=== PATIENT | male | born 1975 | race Hispanic/Latino ===

== ENCOUNTER 2019-06-10 12:31 | Emergency (ER) | payer OTHER, SELFPAY ==
[2019-06-11 11:54] LABS: SARS-CoV-2 MS2 Positive; SARS-CoV-2 N Gene Positive; SARS-CoV-2 S Gene Positive; SARS-CoV-2 orf1ab Positive
== END 2019-06-10 13:34 | disposition home or self-care (01) ==
LOC: ERS 12:31
DX: U07.1 COVID-19 (principal); R05 Cough; F17.210 Nicotine dependence, cigarettes, uncomplicated
CPT/HCPCS: 87635; 87804; 99283; U0003

== ENCOUNTER 2019-06-19 20:36 | Inpatient (IN) | payer OTHER, SELFPAY ==
[2019-06-19] MEDS ORDERED: Acetaminophen 500 MG TAB ONE (21:03)
[2019-06-19 21:13] LABS: #Monocytes 0.4 thou/uL (0.11-0.59); #Neutrophils 5.5 thou/uL (1.40-6.50); %Basophils 0.2 % (0.0-1.0); %Eosinophils 0.2 % (0.0-10.0); %Lymphocytes 14.4 % (21.0-51.0); %Monocytes 5.6 % (0.0-10.0); %Neutrophils 79.5 % (42.0-75.0); Hemoglobin 14.5 g/dL (14.0-18.0); Mean Corpuscular HGB CONC 32.6 g/dL (32.0-36.0); Mean Corpuscular Hemoglobin 31.2 pg (27.0-31.0); Mean Corpuscular Volume 95.6 fL (78.0-98.0); Mean Platelet Volume 6.6 fL (7.4-10.4); Platelet Count 274 thou/uL (130-400); RBC Distribution Width 12.4 % (11.5-14.5); Red Blood Cell (RBC) Count 4.66 mill/uL (4.70-6.10)
[2019-06-19 21:30] LABS: Base Excess-Venous 1.4 mmol/L (-2.0 to 3.0); Bicarbonate (HCO3v) 25.3 mmol/L (22.0-28.0); CO2 Tension (PvCO2) 36.8 mmHg (40.0-50.0); Calcium, Ionized 1.03 mmol/L (See Comments:); Chloride 98 mmol/L (98-107); Hemoglobin - Calc 14.4 g/dL (14.0-18.0); Potassium 3.6 mmol/L (3.5-5.1); Sodium 136 mmol/L (138-145); T. Carbon Dioxide 26.4 mmol/L (22.0-28.0)
[2019-06-19 21:30] LABS: ALT (SGPT) 68 U/L (8-55); AST (SGOT) 57 U/L (5-34); Albumin 3.8 g/dL (3.5-5.0); Alkaline Phosphatase 126 U/L (40-110); Anion Gap 14 mmol/L (10-20); BUN (Urea Nitrogen) 9 mg/dL (8.9-20.6); Bilirubin, Total 0.8 mg/dL (0.2-1.2); Calc. Creatinine Clearance 0 mL/min (70-130); Calcium 8.4 mg/dL (7.8-10.44); Carbon Dioxide 25 mmol/L (22-29); Chloride 99 mmol/L (98-107); Estimated GFR-MDRD 86; Globulin 3.5 g/dL (2.4-3.5); Glucose 114 mg/dL (70-105); Potassium 3.6 mmol/L (3.5-5.1); Protein, Total 7.3 g/dL (6.0-8.3); Sodium 134 mmol/L (136-145)
[2019-06-19] MEDS ORDERED: Hydroxychloroquine Sulfate 200 MG TAB PO SCH (21:45)
[2019-06-19] MEDS ORDERED: cefTRIAXone\\ROCEPHIN 2 GM VIAL ONE (21:45)
[2019-06-19] MEDS ORDERED: cefTRIAXone\\ROCEPHIN 2 GM in Sodium Chloride 0.9% 100 ML IVPB SCH (22:00)
[2019-06-19] MEDS ORDERED: Azithromycin 500 MG in Sodium Chloride 0.9% 250 ML 250 ML IVPB SCH (22:00)
[2019-06-19] MEDS ORDERED: Azithromycin 500 MG VIAL ONE (22:19)
[2019-06-19] MEDS ORDERED: Calcium Carbonate 500 MG ChewTAB PO PRN (23:46)
[2019-06-20 00:56] VITALS: BMI 31.4
[2019-06-20] MEDS ORDERED: Albuterol 200 PUFF (6.7GM INHALER) INH PRN (01:07)
[2019-06-20 01:22] LABS: Troponin I 0.026 ng/mL (< 0.028)
--- NOTE | 2019-06-20 01:54 | HP ---
The patient was seen and examined on June 19, 2019. CHIEF COMPLAINT: Shortness of breath along with fever. HISTORY OF PRESENT ILLNESS: The patient is a 44-year-old male with recently diagnosed COVID-19, presented to the emergency room with above complaints. Over the last 2 weeks, the patient has gradual worsening shortness of breath along with intermittent fever. He was evaluated in the emergency room 11 days ago and was positive for COVID. He self quarantined himself. He takes vyaa-zum-[id number] medication on an as-needed basis. His symptoms got worse over the past few days. He also has cough that is productive of thick yellowish phlegm. He gets short of breath on [id number] exertion. He also has intermittent headache along with chills. For this reason, EMS was called. 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 In the emergency room, his initial vital signs showed temperature 102.7 with respirations of 24, pulse rate of 120, with a blood pressure of 132/74 with O2 saturation 88% on room air. He is currently on 3 L nasal cannula. PAST MEDICAL HISTORY: Recent diagnosis of COVID infection. PAST SURGICAL HISTORY: Reviewed with the patient and none. ALLERGIES: NO KNOWN DRUG ALLERGIES. CURRENT HOME MEDICATION: Tylenol as needed. SOCIAL HISTORY: The patient drinks socially. He currently lives at home with his family. He smokes up to half pack a day. FAMILY HISTORY: Negative for premature coronary artery disease. REVIEW OF SYSTEMS: All other review of systems are reviewed and were found negative. PHYSICAL EXAMINATION: VITAL SIGNS: As discussed above. GENERAL: A 44-year-old male, ill-appearing, in no distress at rest. HEENT: Head, atraumatic and normocephalic. Sclerae anicteric. No oral lesion. NECK: Supple. No JVD. No carotid bruit. No stridor. LUNGS: Showed bilateral rhonchi with bibasilar rales. No significant wheezing. The patient was in mild respiratory distress in the emergency room that has significantly improved. HEART: S1-S2 present, regular. No rubs or gallops. ABDOMEN: Soft. Bowel sounds present. No rebound or guarding. No costovertebral angle tenderness. EXTREMITIES: No edema or calf tenderness. NEUROLOGIC: Grossly nonfocal. Moves all 4 extremities. PSYCHIATRY: Alert, awake, and oriented x3. SKIN: Warm and dry. LYMPH NODES: No palpable lymph nodes in the neck. PERIPHERAL VASCULAR: Radial pulses palpable bilaterally. MUSCULOSKELETAL: No joint swelling or tenderness. LABORATORY FINDINGS: CBC showed WBC 7.0 with hemoglobin 14.5, lymphocytes 14.4, neutrophils 79.5. VBGs showed pH 7.44 with pCO2 of 36.8, PO2 of 49. Chemistry showed sodium 134, potassium 3.6, chloride 99, bicarb 25, BUN of 9, and creatinine 0.95. Total bilirubin 0.8, AST 57, ALT 68, alkaline phosphatase 126. COVID-19 PCR was negative on the 09 of June. Influenza screen was negative on 09 June. Chest x-ray by my review showed bibasilar infiltrate. EKG by my review showed sinus tachycardia. IMPRESSION: 1. Acute hypoxic respiratory failure. 2. Recent diagnosis of COVID-19. 3. Ongoing tobacco abuse. 4. Obesity with a BMI of 31.5. 5. Abnormal liver function tests probably secondary to COVID. 6. Hyponatremia. PLAN: The patient will be monitored in the telemetry unit. His tachycardia has significantly improved with O2 supplementation. We will continue azithromycin. We will add cefepime. We will add nebulizer treatments, Plaquenil. We will monitor QT interval on a daily basis. We will check CRP, procalcitonin, and D-dimer in a.m. We will also add BNP. We will hold IV fluids for now. Monitor labs on a daily basis. Job ID: [id number]
[2019-06-20] MEDS ORDERED: Albuterol 200 PUFF (6.7GM INHALER) INH SCH (02:30)
[2019-06-20] MEDS: Albuterol 200 PUFF (6.7GM INHALER) INH SCH ×6 (03:20→21:42)
[2019-06-20 04:54] LABS: #Lymphocytes 1.1 thou/uL (1.20-3.40); #Monocytes 0.5 thou/uL (0.11-0.59); #Neutrophils 4.4 thou/uL (1.40-6.50); %Basophils 0.6 % (0.0-1.0); %Eosinophils 0.2 % (0.0-10.0); %Lymphocytes 17.7 % (21.0-51.0); %Monocytes 7.7 % (0.0-10.0); %Neutrophils 73.8 % (42.0-75.0); Hemoglobin 13.3 g/dL (14.0-18.0); Mean Corpuscular HGB CONC 32.6 g/dL (32.0-36.0); Mean Corpuscular Hemoglobin 31.6 pg (27.0-31.0); Platelet Count 268 thou/uL (130-400); RBC Distribution Width 12.5 % (11.5-14.5); Red Blood Cell (RBC) Count 4.22 mill/uL (4.70-6.10)
[2019-06-20] MEDS: Acetaminophen 325 MG TAB PO PRN (05:12)
[2019-06-20 05:17] LABS: ALT (SGPT) 62 U/L (8-55); AST (SGOT) 52 U/L (5-34); Albumin 3.4 g/dL (3.5-5.0); Alkaline Phosphatase 119 U/L (40-110); Anion Gap 12 mmol/L (10-20); BUN (Urea Nitrogen) 8 mg/dL (8.9-20.6); Bilirubin, Total 0.5 mg/dL (0.2-1.2); CRP (Inflammatory) 11.41 mg/dL (= or < 0.5); Calc. Creatinine Clearance 122 mL/min (70-130); Calcium 7.6 mg/dL (7.8-10.44); Carbon Dioxide 27 mmol/L (22-29); Chloride 102 mmol/L (98-107); Estimated GFR-MDRD 88; Globulin 2.6 g/dL (2.4-3.5); Glucose 104 mg/dL (70-105); Potassium 4.2 mmol/L (3.5-5.1); Sodium 137 mmol/L (136-145)
[2019-06-20 05:26] LABS: Prothrombin Time 12.7 sec (12.0-14.7)
[2019-06-20 05:27] LABS: PTT 34.9 SEC (22.9-36.1)
[2019-06-20 05:28] LABS: D-Dimer Test 0.81 *mcg/mL (0.27-0.43)
[2019-06-20] MEDS: Ascorbic Acid 500 mg Chewable Tablet PO SCH (08:56)
[2019-06-20] MEDS: Zinc Sulfate 220 MG CAP PO SCH (08:56)
[2019-06-20] MEDS: Saccharomyces boulardii 250 MG CAP PO SCH (08:57)
[2019-06-20] MEDS: Enoxaparin Sodium 40 MG/0.4 ML SYRINGE SC SCH (08:57)
[2019-06-20] MEDS: Folic Acid/Vit B Comp W-C PO SCH (08:57)
[2019-06-20] MEDS: Famotidine 20 MG TAB PO SCH ×2 (08:57→20:14)
[2019-06-20] MEDS: Hydroxychloroquine Sulfate 200 MG TAB PO SCH ×3 (08:58→20:15)
[2019-06-20] MEDS ORDERED: Cefepime 1 GM in Sodium Chloride 0.9% 100 ML IVPB SCH ×2 (09:00→22:00)
--- NOTE | 2019-06-20 09:00 | RAD ---
CHEST 1 VIEW: INDICATION: History of worsening shortness of breath and fever with confirmed positive findings of COVID-19. COMPARISON: None. FINDINGS: Patchy peripheral airspace opacity are evident bilaterally. Heart size is accentuated by a depth of inspiration. No pleural effusion is evident. No pneumothorax is demonstrated. IMPRESSION: 1. Low lung volumes. 2. Patchy peripheral interstitial and airspace opacities. Findings are consistent with patient's kn own history of COVID-19 infection. POS: BH
--- NOTE | 2019-06-20 11:07 | PDOC.HOSPP ---
- Subjective Encounter Date: 06/20/19 Encounter Time: 11:05 Subjective: Mr. Lane was seen today in follow-up of COVID -19 positive pneumonia. He says he feels ok. When asked if he is short of breath, he says " a little". He denies chest pain, he has noted some diarrhea. - Objective Vital Signs & Weight: Vital Signs (12 hours) Temp Pulse Resp BP Pulse Ox 06/20/19 03:46 99.4 F 92 28 H 106/65 96 06/20/19 02:10 95 06/20/19 00:05 99.1 F 97 26 H 109/67 95 Weight Weight 189 lb I&O: 06/19/19 06/20/19 06/21/19 06:59 06:59 06:59 Intake Total 200 Output Total 550 Balance -350 Result Diagrams: 06/20/19 04:35 06/20/19 04:35 Hospitalist ROS - Medication Medications: Active Medications Generic Name Dose Route Start Last Admin Trade Name Freq PRN Reason Stop Dose Admin Acetaminophen 650 mg 06/19/19 23:46 06/20/19 05:12 Tylenol PO 650 mg Q4H PRN Administration Headache/Fever/Mild Pain (1-3) Albuterol Sulfate 2 puff 06/20/19 02:30 06/20/19 05:55 Proventil Hfa INH 2 puff [id number] LUISA Administration Ascorbic Acid 1,000 mg 06/20/19 09:00 06/20/19 08:56 Vitamin C PO 1,000 mg DAILY LUISA Administration Enoxaparin Sodium 40 mg 06/20/19 09:00 06/20/19 08:57 Lovenox SC 40 mg 0900 LUISA Administration Famotidine 20 mg 06/20/19 09:00 06/20/19 08:57 Pepcid PO 20 mg BID LUISA Administration Hydroxychloroquine Sulfate 200 mg 06/20/19 09:00 06/20/19 08:58 Plaquenil PO 200 mg TID LUISA Administration Cefepime HCl 1 gm/ Sodium 100 mls @ 200 mls/hr 06/20/19 09:00 06/20/19 08:57 Chloride IVPB 100 mls Q12HR LUISA Administration Saccharomyces Boulardii 250 mg 06/20/19 09:00 06/20/19 08:57 Florastor PO 250 mg DAILY LUISA Administration Vitamin B Complex/Vit C/Folic Acid 1 tab 06/20/19 09:00 06/20/19 08:57 Nephro-Daniel Tablet PO 1 tab DAILY LUISA Administration Zinc Sulfate 220 mg 06/20/19 09:00 06/20/19 08:56 Zinc Sulfate PO 220 mg DAILY LUISA Administration - Exam Eye: PERRL, anicteric sclera Heart: RRR, no murmur, no gallops, no rubs, normal peripheral pulses Respiratory: no wheezes, normal chest expansion, rales (rales at the right side , through out, and left at the bases, but with better breath sounds than the right, + mild Tachypnea) Gastrointestinal: soft, non-tender, non-distended, normal bowel sounds, no palpable masses Extremities: no cyanosis, no clubbing (Pulses are palpable bilaterally, no lesions, no mottling, no erythema), no edema Skin: no lesions, no rashes Hosp A/P (1) Pneumonia due to COVID-19 virus Code(s): U07.1 - COVID-19; J12.89 - OTHER VIRAL PNEUMONIA Status: Acute (2) Acute respiratory failure with hypoxemia Code(s): J96.01 - ACUTE RESPIRATORY FAILURE WITH HYPOXIA Status: Acute - Plan * COVID positive Pneumonia with acue respiratory failure- continue Supportive care * Supplemental Oxygen * Albuterol inhalers * Continue Empiric antibiotics, for potential bacterial super-infection * This disease has a known unpredictable course- will therefore have a low index of suspicious to move to higher level of care if necessary. This has been communicated to the staff.
[2019-06-20] MEDS: Azithromycin 500 MG in Sodium Chloride 0.9% 250 ML 250 ML IVPB SCH (20:14)
[2019-06-20] MEDS: Melatonin 3 MG TAB PO SCH (20:14)
[2019-06-21] MEDS: Albuterol 200 PUFF (6.7GM INHALER) INH SCH ×6 (03:52→23:07)
[2019-06-21] MEDS: Acetaminophen 325 MG TAB PO PRN ×3 (04:07→23:06)
[2019-06-21] MEDS ORDERED: Sodium Chloride 0.9% 500 ML IVPB SCH (05:15)
[2019-06-21 05:40] LABS: #Eosinphils 0.1 thou/uL (0.0-0.7); #Lymphocytes 0.9 thou/uL (1.20-3.40); #Monocytes 0.5 thou/uL (0.11-0.59); %Basophils 0.4 % (0.0-1.0); %Eosinophils 0.9 % (0.0-10.0); %Lymphocytes 16.5 % (21.0-51.0); %Monocytes 8.8 % (0.0-10.0); %Neutrophils 73.4 % (42.0-75.0); Hemoglobin 13.1 g/dL (14.0-18.0); Mean Corpuscular HGB CONC 32.3 g/dL (32.0-36.0); Mean Corpuscular Hemoglobin 31.2 pg (27.0-31.0); Mean Corpuscular Volume 96.4 fL (78.0-98.0); Mean Platelet Volume 6.9 fL (7.4-10.4); Platelet Count 317 thou/uL (130-400); RBC Distribution Width 12.4 % (11.5-14.5); Red Blood Cell (RBC) Count 4.21 mill/uL (4.70-6.10); White Blood Cell (WBC) Count 5.5 thou/uL (4.8-10.8)
[2019-06-21 06:00] LABS: ALT (SGPT) 59 U/L (8-55); AST (SGOT) 56 U/L (5-34); Albumin 3.3 g/dL (3.5-5.0); Alkaline Phosphatase 109 U/L (40-110); Anion Gap 13 mmol/L (10-20); BUN (Urea Nitrogen) 11 mg/dL (8.9-20.6); Bilirubin, Total 0.5 mg/dL (0.2-1.2); Calc. Creatinine Clearance 145 mL/min (70-130); Calcium 8.2 mg/dL (7.8-10.44); Carbon Dioxide 25 mmol/L (22-29); Chloride 102 mmol/L (98-107); Estimated GFR-MDRD Greater than 90; Globulin 3.3 g/dL (2.4-3.5); Glucose 98 mg/dL (70-105); Potassium 3.8 mmol/L (3.5-5.1); Protein, Total 6.6 g/dL (6.0-8.3); Sodium 136 mmol/L (136-145)
[2019-06-21] MEDS ORDERED: Sodium Chloride 0.9% 1,000 ML IV SCH (06:15)
--- NOTE | 2019-06-21 07:59 | RAD ---
SINGLE VIEW OF THE CHEST: Comparison: 06-19-2019 History: Tachypenia. Positive Covid-19 with worsening shortness of breath and fever. FINDINGS: Single view of the chest shows a normal sized cardiomediastinal silhouette. Multifocal peripheral opa cities are seen in the lungs. There is obscurity of the right costophrenic angle which could represen t a right lower lobe infiltrate or a small right pleural effusion. IMPRESSION: Stable exam. POS: RAYNEA
[2019-06-21] MEDS: Famotidine 20 MG TAB PO SCH ×2 (08:25→19:32)
[2019-06-21] MEDS: Ascorbic Acid 500 mg Chewable Tablet PO SCH (08:25)
[2019-06-21] MEDS: Enoxaparin Sodium 40 MG/0.4 ML SYRINGE SC SCH (08:25)
[2019-06-21] MEDS: Zinc Sulfate 220 MG CAP PO SCH (08:26)
[2019-06-21] MEDS: Saccharomyces boulardii 250 MG CAP PO SCH (08:26)
[2019-06-21] MEDS: Folic Acid/Vit B Comp W-C PO SCH (08:26)
--- NOTE | 2019-06-21 11:03 | PDOC.HOSPP ---
- Subjective Encounter Date: 06/21/19 Encounter Time: 11:01 Subjective: Mr. Lane was seen today in follow-up of COVID-19 Pneumonia. He notes some dyspnea on exertion. He has had some diarrhea, but none since last night. - Objective Vital Signs & Weight: Vital Signs (12 hours) Temp Pulse Resp BP Pulse Ox 06/21/19 08:00 98.6 F 89 30 H 112/67 94 L 06/21/19 07:48 93 L 06/21/19 05:15 99.1 F 84 28 H 88/54 L 100 06/21/19 04:21 100 F H 86 30 H 97/59 L 95 06/21/19 00:30 99.6 F 95 32 H 102/61 96 Weight Weight 189 lb I&O: 06/20/19 06/21/19 06/22/19 06:59 06:59 06:59 Intake Total 200 950 350 Output Total 550 300 Balance -350 950 50 Result Diagrams: 06/21/19 04:55 06/21/19 04:55 Hospitalist ROS - Medication Medications: Active Medications Generic Name Dose Route Start Last Admin Trade Name Freq PRN Reason Stop Dose Admin Acetaminophen 650 mg 06/19/19 23:46 06/21/19 04:07 Tylenol PO 650 mg Q4H PRN Administration Headache/Fever/Mild Pain (1-3) Albuterol Sulfate 2 puff 06/20/19 01:07 06/20/19 20:55 Proventil Hfa INH 2 puff Q2H PRN Administration SOB/WHEEZE Albuterol Sulfate 2 puff 06/20/19 02:30 06/21/19 10:29 Proventil Hfa INH 2 puff [id number] LUISA Administration Ascorbic Acid 1,000 mg 06/20/19 09:00 06/21/19 08:25 Vitamin C PO 1,000 mg DAILY LUISA Administration Enoxaparin Sodium 40 mg 06/20/19 09:00 06/21/19 08:25 Lovenox SC 40 mg 0900 LUISA Administration Famotidine 20 mg 06/20/19 09:00 06/21/19 08:25 Pepcid PO 20 mg BID LUISA Administration Azithromycin 500 mg/ Sodium 250 mls @ 250 mls/hr 06/20/19 21:00 06/20/19 20: 14 Chloride IVPB 250 mls QPM LUISA Administration Melatonin 3 mg 06/20/19 21:00 06/20/19 20:14 Melatonin PO 3 mg HS LUISA Administration Saccharomyces Boulardii 250 mg 06/20/19 09:00 06/21/19 08:26 Florastor PO 250 mg DAILY LUISA Administration Vitamin B Complex/Vit C/Folic Acid 1 tab 06/20/19 09:00 06/21/19 08:26 Nephro-Daniel Tablet PO 1 tab DAILY LUISA Administration Zinc Sulfate 220 mg 06/20/19 09:00 06/21/19 08:26 Zinc Sulfate PO 220 mg DAILY LUISA Administration - Exam Eye: PERRL ENT: normocephalic atraumatic, no oropharyngeal lesions Heart: RRR, no murmur, no gallops, no rubs Respiratory: rales (rales at both bases. right much greater than left, no wheezing or rhonchi) Gastrointestinal: soft, non-tender, non-distended, normal bowel sounds Extremities: no cyanosis, no clubbing (good distal pulses), no edema Skin: normal turgor, no lesions Hosp A/P (1) Pneumonia due to COVID-19 virus Code(s): U07.1 - COVID-19; J12.89 - OTHER VIRAL PNEUMONIA Status: Acute (2) Acute respiratory failure with hypoxemia Code(s): J96.01 - ACUTE RESPIRATORY FAILURE WITH HYPOXIA Status: Acute - Plan * COVID positive Pneumonia with acute respiratory failure- continue Supportive care * His procalcitonin was low- will discontinue Cefepime, but continue Azithromycin * Will discontinue Hydroxychloroquine * Supplemental Oxygen * Albuterol inhalers * This is approximately day 13 of his illness. Will monitor until at least 14- 15 days in the hospital
[2019-06-21] MEDS: Azithromycin 500 MG in Sodium Chloride 0.9% 250 ML 250 ML IVPB SCH (19:32)
[2019-06-21] MEDS: Melatonin 3 MG TAB PO SCH (19:32)
[2019-06-22] MEDS: Albuterol 200 PUFF (6.7GM INHALER) INH SCH ×4 (03:23→23:33)
[2019-06-22] MEDS: Ascorbic Acid 500 mg Chewable Tablet PO SCH (08:31)
[2019-06-22] MEDS: Zinc Sulfate 220 MG CAP PO SCH (08:31)
[2019-06-22] MEDS: Folic Acid/Vit B Comp W-C PO SCH (08:31)
[2019-06-22] MEDS: Enoxaparin Sodium 40 MG/0.4 ML SYRINGE SC SCH (08:31)
[2019-06-22] MEDS: Saccharomyces boulardii 250 MG CAP PO SCH (08:31)
[2019-06-22] MEDS: Famotidine 20 MG TAB PO SCH ×2 (08:31→20:44)
--- NOTE | 2019-06-22 11:35 | PDOC.HOSPP ---
- Subjective Encounter Date: 06/22/19 Encounter Time: 11:33 Subjective: Mr. Lane was seen today in follow-up of COVID positive Pneumonia with respiratory failure. He says he feels fine. No complaints. He is breathing better, and appetite is improving. - Objective Vital Signs & Weight: Vital Signs (12 hours) Temp Pulse Resp BP Pulse Ox 06/22/19 08:00 99.8 F H 95 18 108/66 91 L 06/22/19 03:32 98.4 F 84 22 H 103/64 100 Weight Weight 183 lb 9.6 oz I&O: 06/21/19 06/22/19 06/23/19 06:59 06:59 06:59 Intake Total 950 1080 Output Total 1600 Balance 950 -520 Result Diagrams: 06/21/19 04:55 06/21/19 04:55 Hospitalist ROS - Medication Medications: Active Medications Generic Name Dose Route Start Last Admin Trade Name Freq PRN Reason Stop Dose Admin Acetaminophen 650 mg 06/19/19 23:46 06/21/19 23:06 Tylenol PO 650 mg Q4H PRN Administration Headache/Fever/Mild Pain (1-3) Albuterol Sulfate 2 puff 06/20/19 01:07 06/20/19 20:55 Proventil Hfa INH 2 puff Q2H PRN Administration SOB/WHEEZE Albuterol Sulfate 2 puff 06/20/19 02:30 06/22/19 06:28 Proventil Hfa INH 2 puff [id number] LUISA Administration Ascorbic Acid 1,000 mg 06/20/19 09:00 06/22/19 08:31 Vitamin C PO 1,000 mg DAILY LUISA Administration Enoxaparin Sodium 40 mg 06/20/19 09:00 06/22/19 08:31 Lovenox SC 40 mg 0900 LUISA Administration Famotidine 20 mg 06/20/19 09:00 06/22/19 08:31 Pepcid PO 20 mg BID LUISA Administration Azithromycin 500 mg/ Sodium 250 mls @ 250 mls/hr 06/20/19 21:00 06/21/19 19: 32 Chloride IVPB 250 mls QPM LUISA Administration Melatonin 3 mg 06/20/19 21:00 06/21/19 19:32 Melatonin PO 3 mg HS LUISA Administration Saccharomyces Boulardii 250 mg 06/20/19 09:00 06/22/19 08:31 Florastor PO 250 mg DAILY LUISA Administration Sodium Chloride 10 ml 06/19/19 23:46 06/21/19 19:33 Flush - Normal Saline IVF 10 ml PRN PRN Administration Saline Flush Vitamin B Complex/Vit C/Folic Acid 1 tab 06/20/19 09:00 06/22/19 08:31 Nephro-Daniel Tablet PO 1 tab DAILY LUISA Administration Zinc Sulfate 220 mg 06/20/19 09:00 06/22/19 08:31 Zinc Sulfate PO 220 mg DAILY LUISA Administration - Exam Eye: PERRL Heart: RRR, no murmur, no gallops, no rubs, normal peripheral pulses Respiratory: CTAB (+ rales bilaterally), no ronchi Gastrointestinal: soft, non-tender, non-distended, normal bowel sounds, no palpable masses, no hepatomegaly Extremities: no cyanosis, no edema Skin: normal turgor Skin - other findings: no rash no lesions Hosp A/P (1) Pneumonia due to COVID-19 virus Code(s): U07.1 - COVID-19; J12.89 - OTHER VIRAL PNEUMONIA Status: Acute (2) Acute respiratory failure with hypoxemia Code(s): J96.01 - ACUTE RESPIRATORY FAILURE WITH HYPOXIA Status: Acute - Plan * COVID positive Pneumonia with acute respiratory failure- continue Supportive care * Will check inflammatory markers- He is at day 14( according to the patient) and will monitor his markers and see the trend. If they begin to trend down over the course of the next few days, thenn he can possibly be discharged home over the weekend * Continue Supplemental Oxygen and wean as tolerated * Albuterol inhalers
[2019-06-22 12:34] LABS: Platelet Count 348 thou/uL (130-400)
[2019-06-22 12:51] LABS: Fibrinogen 716 mg/dL (253-463)
[2019-06-22 12:53] LABS: D-Dimer Test 1.18 *mcg/mL (0.27-0.43); INR-International Normal Ratio 0.9; PTT 31.5 SEC (22.9-36.1); Prothrombin Time 12.1 sec (12.0-14.7)
[2019-06-22 13:12] LABS: FSP-Qualitative Normal (Normal)
[2019-06-22] MEDS: Acetaminophen 325 MG TAB PO PRN ×2 (15:59→20:44)
[2019-06-22] MEDS: Azithromycin 500 MG in Sodium Chloride 0.9% 250 ML 250 ML IVPB SCH (20:44)
[2019-06-22] MEDS: Melatonin 3 MG TAB PO SCH (20:45)
[2019-06-23] MEDS: Albuterol 200 PUFF (6.7GM INHALER) INH SCH ×6 (01:50→23:41)
[2019-06-23] MEDS: Saccharomyces boulardii 250 MG CAP PO SCH (08:31)
[2019-06-23] MEDS: Famotidine 20 MG TAB PO SCH ×2 (08:31→21:17)
[2019-06-23] MEDS: Ascorbic Acid 500 mg Chewable Tablet PO SCH (08:31)
[2019-06-23] MEDS: Folic Acid/Vit B Comp W-C PO SCH (08:31)
[2019-06-23] MEDS: Enoxaparin Sodium 40 MG/0.4 ML SYRINGE SC SCH (08:31)
[2019-06-23] MEDS: Zinc Sulfate 220 MG CAP PO SCH (08:31)
--- NOTE | 2019-06-23 13:30 | PDOC.HOSPP ---
- Subjective Encounter Date: 06/23/19 Encounter Time: 13:29 Subjective: Mr. Lane was seen today in follow-up of COVID-19 pneumonia with respiratory failure. He says he feels fine. His oxygen saturations dropped to 86-88% when he was taken off oxygen. - Objective Vital Signs & Weight: Vital Signs (12 hours) Temp Pulse Resp BP Pulse Ox 06/23/19 12:19 98.9 F 104 H 22 H 109/74 92 L 06/23/19 08:30 98.1 F 101 H 26 H 101/68 94 L 06/23/19 08:00 89 L 06/23/19 06:58 94 L 06/23/19 06:20 94 L 06/23/19 06:15 99.5 F 95 24 H 108/68 99 06/23/19 01:50 98.6 F 85 24 H 103/64 96 Weight Weight 179 lb 14.4 oz I&O: 06/22/19 06/23/19 06/24/19 06:59 06:59 06:59 Intake Total 1080 3740 600 Output Total 1600 3650 300 Balance -520 90 300 Result Diagrams: 06/22/19 12:18 06/21/19 04:55 Hospitalist ROS - Medication Medications: Active Medications Generic Name Dose Route Start Last Admin Trade Name Freq PRN Reason Stop Dose Admin Acetaminophen 650 mg 06/19/19 23:46 06/22/19 20:44 Tylenol PO 650 mg Q4H PRN Administration Headache/Fever/Mild Pain (1-3) Albuterol Sulfate 2 puff 06/20/19 01:07 06/20/19 20:55 Proventil Hfa INH 2 puff Q2H PRN Administration SOB/WHEEZE Albuterol Sulfate 2 puff 06/20/19 02:30 06/23/19 12:01 Proventil Hfa INH 2 puff [id number] LUISA Administration Ascorbic Acid 1,000 mg 06/20/19 09:00 06/23/19 08:31 Vitamin C PO 1,000 mg DAILY LUISA Administration Enoxaparin Sodium 40 mg 06/20/19 09:00 06/23/19 08:31 Lovenox SC 40 mg 0900 LUISA Administration Famotidine 20 mg 06/20/19 09:00 06/23/19 08:31 Pepcid PO 20 mg BID LUISA Administration Azithromycin 500 mg/ Sodium 250 mls @ 250 mls/hr 06/20/19 21:00 06/22/19 20: 44 Chloride IVPB 250 mls QPM LUISA Administration Melatonin 3 mg 06/20/19 21:00 06/22/19 20:45 Melatonin PO 3 mg HS LUISA Administration Saccharomyces Boulardii 250 mg 06/20/19 09:00 06/23/19 08:31 Florastor PO 250 mg DAILY LUISA Administration Sodium Chloride 10 ml 06/19/19 23:46 06/23/19 08:32 Flush - Normal Saline IVF 10 ml PRN PRN Administration Saline Flush Vitamin B Complex/Vit C/Folic Acid 1 tab 06/20/19 09:00 06/23/19 08:31 Nephro-Daniel Tablet PO 1 tab DAILY LUISA Administration Zinc Sulfate 220 mg 06/20/19 09:00 06/23/19 08:31 Zinc Sulfate PO 220 mg DAILY LUISA Administration - Exam Eye: PERRL Heart: RRR, no murmur, no gallops, no rubs, normal peripheral pulses Respiratory: CTAB, rales Gastrointestinal: soft, non-tender, non-distended, normal bowel sounds, no palpable masses, no hepatomegaly Extremities: no cyanosis, no edema Hosp A/P (1) Pneumonia due to COVID-19 virus Code(s): U07.1 - COVID-19; J12.89 - OTHER VIRAL PNEUMONIA Status: Acute (2) Acute respiratory failure with hypoxemia Code(s): J96.01 - ACUTE RESPIRATORY FAILURE WITH HYPOXIA Status: Acute - Plan * COVID positive Pneumonia with acute respiratory failure- continue Supportive care * Will check inflammatory markers- these are decreasing - will re-check tomorrow * Hopefully he can be weaned entirely off oxygen by tomorrow. Anticipate discharge home tomorrow if stable. He is uninsured, and if he requires oxygen, then he will have to self pay. * Azithromycin and albuterol inhaler will be sent to his pharmacy today, so that he can receive medication assistance * Continue Supplemental Oxygen and wean as tolerated
[2019-06-23] MEDS: Azithromycin 500 MG in Sodium Chloride 0.9% 250 ML 250 ML IVPB SCH (21:17)
[2019-06-23] MEDS: Melatonin 3 MG TAB PO SCH (21:18)
[2019-06-24] MEDS: Albuterol 200 PUFF (6.7GM INHALER) INH SCH ×3 (03:30→11:38)
[2019-06-24] MEDS: Saccharomyces boulardii 250 MG CAP PO SCH (08:55)
[2019-06-24] MEDS: Famotidine 20 MG TAB PO SCH (08:55)
[2019-06-24] MEDS: Folic Acid/Vit B Comp W-C PO SCH (08:55)
[2019-06-24] MEDS: Ascorbic Acid 500 mg Chewable Tablet PO SCH (08:55)
[2019-06-24] MEDS: Zinc Sulfate 220 MG CAP PO SCH (08:55)
[2019-06-24] MEDS: Enoxaparin Sodium 40 MG/0.4 ML SYRINGE SC SCH (08:55)
[2019-06-24 11:48] VITALS: BP 97/62; TEMP 97.4
--- NOTE | 2019-06-24 15:19 | EKG ---
Test Reason : SOB Blood Pressure : / mmHG Vent. Rate : 100 BPM Atrial Rate : 100 BPM P-R Int : 144 ms QRS Dur : 090 ms QT Int : 346 ms P-R-T Axes : 015 -09 012 degrees QTc Int : 446 ms Normal sinus rhythm Normal ECG Confirmed by MALLORY MATTHEWS DO ([id number]), graphics editor MELISSA SHEA ([id number]) on 06/24/2019 3:19:10 PM Referred By: Confirmed By:MALLORY MATTHEWS DO
--- NOTE | 2019-06-25 01:07 | DIS ---
DATE OF ADMISSION: 06/19/2019 DATE OF DISCHARGE: 06/24/2019 DISCHARGE DIAGNOSES: 1. Pneumonia due to COVID-19 virus. 2. Acute respiratory failure with hypoxemia. DISCHARGE MEDICATIONS: 1. Albuterol inhaler q.6 hours. 2. Vitamin C 1000 mg daily. 3. Zithromax 250 mg daily for 4 more days. 4. Folic acid one tablet daily. 5. Zinc sulfate 220 mg daily. PHYSICAL EXAMINATION: On the day of discharge, the patient is doing well. He is comfortable. He is saturating in the room air in the upper 90s. He is not in any respiratory distress. HOSPITAL COURSE: This is a 44-year-old male admitted with shortness of breath and fever. He was tested positive on June 09 and came to the emergency room on with short of breath and fever. He also had intermittent headache. He is English-speaking only. He was admitted for further care. After supportive measures including Zithromax, nebulizer treatments, Plaquenil, vitamin C, and zinc, he remained stable. He had one episode of hypoxia the day prior to discharge that has resolved. He is ambulating and he does not need any home oxygen. He is almost 14 days after being tested positive for COVID. He is clinically stable enough to be discharged. DISCHARGE INSTRUCTIONS: Activity as tolerated. Healthy heart diet. Follow up with primary care physician in one week. TIME SPENT: Discharge time took over 30 minutes. Job ID: [id number] [id number]
== END 2019-06-24 14:50 | disposition home or self-care (01) | DRG 177 ==
LOC: ERS 20:36 → 2SW 22:02
PROVIDERS: ADMIT Internal Medicine; ATTEND Internal Medicine
PROC: 8E0ZXY6 Isolation (ICD-10-PCS; principal; 2019-06-19)
DX: U07.1 COVID-19 (principal); J12.89 Other viral pneumonia; J96.01 Acute respiratory failure with hypoxia; E87.1 Hypo-osmolality and hyponatremia; F17.210 Nicotine dependence, cigarettes, uncomplicated; E66.9 Obesity, unspecified; Z68.31 Body mass index [BMI] 31.0-31.9, adult
CPT/HCPCS: 36415; 71045; 80053; 82330; 82728; 82803; 83605; 83630; 83880; 84145; 84484; 85025; 85049; 85300; 85362; 85379; 85384; 85610; 85730; 86140; 87045; 87046; 87081; 87324; 87328; 87329; 87427; 87449; 93005; 96361; 96365; 96366; 96367; J0456; J0692; J0696; J1650; J3490; J7030; J7050

== ENCOUNTER 2020-07-16 16:06 | Emergency (ER) | payer SELFPAY ==
[2020-07-16 16:47] LABS: #Basophils 0.1 thou/uL (0.0-0.2); #Lymphocytes 1.1 thou/uL (1.20-3.40); #Neutrophils 4.3 thou/uL (1.40-6.50); %Eosinophils 0.8 % (0.0-10.0); %Lymphocytes 16.7 % (21.0-51.0); %Monocytes 14.8 % (0.0-10.0); %Neutrophils 66.7 % (42.0-75.0); Hemoglobin 15.2 g/dL (14.0-18.0); Mean Corpuscular HGB CONC 34.7 g/dL (32.0-36.0); Mean Corpuscular Hemoglobin 33.6 pg (27.0-31.0); Mean Corpuscular Volume 96.9 fL (78.0-98.0); Platelet Count 215 thou/uL (130-400); RBC Distribution Width 12.5 % (11.5-14.5); Red Blood Cell (RBC) Count 4.53 mill/uL (4.70-6.10); White Blood Cell (WBC) Count 6.5 thou/uL (4.8-10.8)
[2020-07-16] MEDS ORDERED: Aspirin Chewable 81 MG TAB ONE (16:58)
[2020-07-16 17:22] LABS: ALT (SGPT) 96 U/L (8-55); AST (SGOT) 78 U/L (5-34); Albumin 4.2 g/dL (3.5-5.0); Alkaline Phosphatase 96 U/L (40-110); Anion Gap 18 mmol/L (10-20); BUN (Urea Nitrogen) 13 mg/dL (8.9-20.6); Bilirubin, Total 0.4 mg/dL (0.2-1.2); CK (CPK) 275 U/L (30-200); Calc. Creatinine Clearance 0 mL/min (70-130); Calcium 9.2 mg/dL (7.8-10.44); Carbon Dioxide 20 mmol/L (22-29); Chloride 101 mmol/L (98-107); Globulin 3.3 g/dL (2.4-3.5); Glucose 145 mg/dL (70-105); Potassium 3.8 mmol/L (3.5-5.1); Protein, Total 7.5 g/dL (6.0-8.3); Sodium 135 mmol/L (136-145)
[2020-07-16 18:42] LABS: Bilirubin Negative (Negative); Blood, Urine Negative (Negative); Glucose, Urine (Dipstick) Negative (Negative); Ketone, Urine Negative (Negative); Leukocyte Negative (Negative); Nitrite Negative (Negative); Protein, Urine (Dipstick) Negative (Neg-Trace); Urobilinogen 0.2 mg/dL (Less than 2)
[2020-07-16 18:48] LABS: Clarity Clear (Clear)
[2020-07-16 18:51] LABS: Bacteria/HPF 1+ HPF (None Seen); RBC/HPF 0-3 HPF (0-3); Squamous Epithelial None Seen HPF (0-3); WBC/HPF 0-3 HPF (0-3)
== END 2020-07-16 18:48 | disposition home or self-care (01) ==
LOC: ERS 16:06
DX: T67.5XXA Heat exhaustion, unspecified, initial encounter (principal); M62.82 Rhabdomyolysis; N17.9 Acute kidney failure, unspecified; X58.XXXA Exposure to other specified factors, initial encounter; F17.210 Nicotine dependence, cigarettes, uncomplicated
CPT/HCPCS: 36415; 80053; 81003; 82550; 84484; 85025; 93005; 94760